=== PATIENT | male | born 1975 | race Caucasian/White ===

== ENCOUNTER 2017-06-04 20:08 | Emergency (ER) | payer SELFPAY ==
--- NOTE | 2017-06-04 21:57 | RAD ---
RIGHT ELBOW FOUR VIEW 06/04/17 HISTORY: Fall of skateboard. [place] a pop. COMPARISON: None. FINDINGS: Only seen on the lateral radiograph is a fracture of what appears to be coronoid process. Large joint effusion. IMPRESSION: Seen only on the lateral radiograph is a fracture through the coronoid process of the ulna. POS: [facility]
== END 2017-06-04 21:59 | disposition home or self-care (01) ==
LOC: SCSER 20:08
DX: S52.041A Displaced fracture of coronoid process of right ulna, initial encounter for closed fracture (principal); F17.210 Nicotine dependence, cigarettes, uncomplicated; V00.131A Fall from skateboard, initial encounter; Y93.51 Activity, roller skating (inline) and skateboarding